=== PATIENT | female | born 1935 | race Caucasian/White ===

== ENCOUNTER 2016-08-10 10:17 | Emergency (ER) | payer OTHER ==
--- NOTE | 2016-08-10 10:54 | PROVIDER DOCUMENTATION ---
HPI-Head Injury - General Chief Complaint: Head Injury Stated Complaint: FALL Time Seen by Provider: 08/10/16 10:38 Source: patient Allergies/Adverse Reactions: Patient Allergies Allergy/AdvReac Type Severity Reaction Status Date / Time cephalexin monohydrate * Allergy closing of Verified 08/10/16 10:34 [From Keflex] throat cortisone Allergy ITCHING Verified 08/10/16 10:34 Home Medications: Home Medication List Medication Instructions Recorded Confirmed Last Taken Type Aspirin [Aspirin EC] 81 mg PO DAILY 08/10/16 08/10/16 08/08/16 History - History of Present Illness-Head Injury Nature of Presenting Problem: 80 y/o F c/o fall x 1 hour. Pt states that she tripped over something at home and fell, hitting her superior R orbit on a nightstand. States that she did not lose consciousness. Denies any other sxs, including blurry/double vision, neck pain, confusion, vomiting. Review of Systems - Adult - REVIEW OF SYSTEMS - ADULT Constitutional: reports: no symptoms reported. denies: chills, fever Eyes: reports: no symptoms reported. denies: blurred vision, double vision Ears, Nose, Mouth & Throat: reports: no symptoms reported. denies: ear pain, nose pain Cardiovascular: reports: no symptoms reported. denies: chest pain, palpitations Respiratory: reports: no symptoms reported. denies: dyspnea on exertion, shortness of breath Gastrointestinal: reports: no symptoms reported. denies: nausea, vomiting Genitourinary: reports: no symptoms reported. denies: dysuria, frequency Musculoskeletal: reports: no symptoms reported. denies: joint pain, joint swelling Integumentary: reports: no symptoms reported. denies: nail changes, rash Neurological: reports: see HPI, headache/migraines. denies: loss of balance, numbness, paresthesia, syncope Psychiatric: reports: no symptoms reported Endocrine: reports: no symptoms reported. denies: cold intolerance, heat intolerance Hematologic/Lymphatic: reports: no symptoms reported. denies: easy bruising, prolonged bleeding Allergic/Immunologic: reports: no symptoms reported All Other Systems: Reviewed and Negative Past History - Adult - PAST MEDICAL HISTORY-ADULT Review of Records: reports: Nursing Assessment Review, Medications Reviewed - SOCIAL HISTORY Living Situation: alone Physical Exam- Neurological - Physical Exam-Neuro Initial Vital Signs Reviewed: Yes General Appearance: alert, mild distress Eye Exam: bilateral eye: normal inspection, PERRL, EOMI HENMT: normocephalic/atraumatic, moist mucous membranes Head Injury: ecchymosis (L superior orbit) Neck: non-tender, supple, normal inspection. negative: C-spine tenderness Respiratory: lungs clear, normal breath sounds. negative: crackles, rales, rhonchi, stridor, wheezing Cardiovascular: regular rate, rhythm. 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 negative: abnormal eye position , abnormal pupil position, abnormal speech, facial asymmetry, facial droop, facial paresthesias, facial weakness, gaze palsy, hearing deficit (R), hearing deficit (L), tongue deviation to R, tongue deviation to L Coordination/Gait: normal gait Neurologic: greaser helper II-XII nml as tested. negative: aphasia, EOM palsy, facial droop Integumentary: normal color, normal turgor, warm/dry Psych/Mental Status: normal mood/affect, normal thought content, normal thought process, oriented x 3 Progress - CT/MRI 1 CT Study: Cervical Spine, Head Impression: See EMR Report (cspine: NAD. Head: atrophy, no acute intracranial disease. -per Dr. Menjivar) 2 CT Study: Facial Bones Impression: See EMR Report (No acute disease, per Dr. Menjivar) Departure - Departure Time of Disposition Order: 12:58 DIAGNOSIS: Head injury Qualifiers: Encounter type: initial encounter Qualified Code(s): S09.90XA - Unspecified injury of head, initial encounter Contusion Qualifiers: Encounter type: initial encounter Contusion area: head Contusion of head detail : periocular area Laterality: left Qualified Code(s): S00.12XA - Contusion of left eyelid and periocular area, initial encounter Disposition: HOME 01 Certified Medical Emergency: Emergent Condition: Stable Additional Instructions: Take tylenol as needed for pain. Follow up with PCP for recheck in 3-5 days. Return if sudden/severe PAYTON, vision changes, or vomiting. ED Follow Up Instructions: You have been treated by a care provider in the Emergency Department. These instructions are being provided to you so you can have an understanding of how to care for yourself upon discharge. Upon discharge from the Emergency Department, you are responsible for making arrangements for follow-up care by a physician of your choice. Take all prescribed medications as directed. Return to the Emergency Department immediately for any new or worsening symptoms. You may call the Physician Referral phone number at [phone] to obtain a list of Physicians who are taking new patients. Attestation - Physician/ LIO Attestation Patient care was provided by Advanced Practice Provider:: Yes Advanced Practice Provider:: [facility] Advanced [facility] Provider documentation review:: The Mid-level provider documentation, treatment plan and medical decision making was reviewed by the physician who agrees with all treatment and medical decision making by the MLP.
--- NOTE | 2016-08-10 13:24 | Diag Imaging Result Document ---
PROCEDURE NAME: HEAD/C-SPINE W/O CONTRAST - 08/10/2016 CT OF THE HEAD WITHOUT CONTRAST: FINDINGS: There is generalized cerebral atrophy. There is some ventriculomegaly which is probably due to ex vacuo change. There are no previous studies available for comparison. There are calcifications in both internal carotid arteries. There is no evidence of bleed or mass effect. The visualized paranasal sinuses are clear. The calvarium is intact. IMPRESSION: Atrophy. No evidence of acute disease. CT OF THE CERVICAL SPINE: FINDINGS: There is some reversal of the normal lordotic curvature of the cervical spine, particularly at the C5-6 and C6-7 levels. These disk spaces are also narrowed and there is anterior osteophyte formation. No evidence of fracture, subluxation or prevertebral soft tissue swelling is present. Impression: No acute bony disease. [facility]
--- NOTE | 2016-08-10 13:25 | Diag Imaging Result Document ---
PROCEDURE NAME: FACIAL BONES W/O CONTRAST - 08/10/2016 CT OF THE FACIAL BONES: FINDINGS: The paranasal sinuses are clear. The mandible is intact and there is otherwise no evidence of acute bony disease. The orbits are unremarkable in appearance. IMPRESSION: No acute bony disease.
[2016-08-10 13:37] VITALS: BP 173/67
== END 2016-08-10 13:36 | disposition home or self-care (01) ==
LOC: ED 10:17
DX: S00.12XA Contusion of left eyelid and periocular area, initial encounter (principal); S09.90XA Unspecified injury of head, initial encounter; W18.09XA Striking against other object with subsequent fall, initial encounter; R51 Headache; Z79.82 Long term (current) use of aspirin
CPT/HCPCS: 70450; 70486; 72125